=== PATIENT | female | born 1955 ===

== ENCOUNTER → 2018-12-06 20:26 | Outpatient (REF) | payer OTHER, SELFPAY ==
[2018-12-06 21:15] LABS: Hemoglobin 15.4 g/dL (12.0-16.0); Mean Corpuscular HGB Conc 34.2 % (30-36); Mean Corpuscular Volume 87.7 fL (80-100); Platelet Count 254 X10^3/uL (150-400); Red Blood Cell Count 5.13 X10^6/uL (4.0-5.2); Red Cell Distribution Width 13.1 % (11.6-14.8); White Blood Cell Count 8.8 X10^3/uL (4.5-11.0)
[2018-12-06 21:16] LABS: Add Manual Diff / Slide Review YES
[2018-12-06 22:19] LABS: Alanine Aminotransferase 38 IU/L (9-52); Albumin 4.3 g/dL (3.5-5.0); Albumin Globulin Ratio 1.4 (1.0-2.8); Alkaline Phosphatase 68 U/L (38-126); Aspartate Aminotransferase 22 IU/L (14-36); BUN Creatinine Ratio 25.7 (6-22); Bilirubin Total 0.6 mg/dL (0.2-1.3); Blood Urea Nitrogen 18 mg/dL (7-17); Calcium 9.7 mg/dL (8.4-10.2); Carbon Dioxide 27 mmol/L (22-32); Chloride 104 mmol/L (98-107); Cholesterol 230 mg/dL (140-199); Estimated Glomerular Filt Rate > 60.0 mL/min (>60); Glucose 94 mg/dL (80-110); HDL Cholesterol 42 mg/dL (40-60); HEMOLYSIS < 15 (0-50); LDL Cholesterol Calculated 158 mg/dL (<100); Neutrophils Absolute Manual 7304 /uL (3000-5900); Platelet Estimate Adequate on smear; Platelet Morphology Comment NOTE; Potassium 4.3 mmol/L (3.4-5.1); RBC Morphology Normal Morphology; Sodium 140 mmol/L (137-145); Total Cells Counted 100; Total Protein 7.3 g/dL (6.3-8.2); Triglycerides 152 mg/dL (35-150)
[2018-12-06 23:13] LABS: Free T3, Triiodothyronine Free 3.81 pg/mL (2.77-5.27); Free T4, Direct Thyroxine 0.78 ng/dL (0.78-2.19); Triiodothryronine T3 Uptake 27.1 % (23.5-40.5)
[2018-12-07 00:13] LABS: Hemoglobin A1C% w Est Avg Glu 5.1 % (4.0-6.0)
[2018-12-08 14:05] LABS: Thyroid Peroxidase Antibodies > 900 IU/mL (< 9)
[2018-12-08 14:06] LABS: Anti Thyroglobulin Antibody 157 IU/mL (< 2)
[2018-12-08 16:46] LABS: Triiodothyronine T3 Total 135 ng/dL (76-181)
== END ==
LOC: LAB 20:26
PROVIDERS: Visit Provider Naturopath
DX: E03.9 Hypothyroidism, unspecified (principal); R53.83 Other fatigue; Z83.3 Family history of diabetes mellitus
CPT/HCPCS: 36415; 80053; 80061; 83036; 84439; 84443; 84479; 84480; 84481; 85025; 86376; 86800